=== PATIENT | female | born 1985 | race Two or more races ===

== ENCOUNTER 2023-04-03 12:47 | Emergency (ER) | payer SELFPAY ==
[~2023-04-03] VITALS: Ht 165.1 cm; Wt 122.7 kg
[2023-04-03 12:53] VITALS: BP 133/82; PULSE 108; RESP 20; O2SAT 7
== END 2023-04-03 20:23 | disposition left against medical advice (07) ==
LOC: EDBD 12:47 → ER 12:47
DX: M79.642 Pain in left hand (principal); Z53.21 Procedure and treatment not carried out due to patient leaving prior to being seen by health care provider